=== PATIENT | male | born 1995 | race Caucasian/White ===

== ENCOUNTER 2016-03-19 12:23 | Emergency (ER) | payer BC ==
[~2016-03-19] VITALS: Ht 188 cm; Wt 69.4 kg
[2016-03-19 12:23] VITALS: BP 114/87
[~2016-03-19 12:23] MED LIST: INSU100I4 SQ
[2016-03-19] MEDS ORDERED: ALBUTEROL FS 2.5 MG/0.5 ML VIAL.NEB NEB ONE (13:00)
[2016-03-19] MEDS ORDERED: ALBUTEROL FS 2.5 MG/0.5 ML VIAL.NEB ONE (13:19)
== END 2016-03-19 14:47 | disposition home or self-care (01) ==
LOC: ER 12:26
DX: J20.9 Acute bronchitis, unspecified (principal); E10.9 Type 1 diabetes mellitus without complications
CPT/HCPCS: 71010-TC; A4606; Z7610

== ENCOUNTER 2016-05-06 16:53 | Emergency (ER) | payer BC ==
[~2016-05-06] VITALS: Ht 188 cm; Wt 72.6 kg
[2016-05-06 17:33] VITALS: BP 119/64
== END 2016-05-06 19:04 | disposition home or self-care (01) ==
LOC: ER 17:08
DX: F41.9 Anxiety disorder, unspecified (principal); J20.9 Acute bronchitis, unspecified; G47.00 Insomnia, unspecified; E10.9 Type 1 diabetes mellitus without complications
CPT/HCPCS: 71010; 99283; A4606; Z7610

== ENCOUNTER 2017-11-30 13:32 | Emergency (ER) | payer BC ==
[~2017-11-30] VITALS: Ht 188 cm; Wt 72.6 kg
--- NOTE | 2017-11-30 13:49 | NUR ---
feeling better now; want medical clearance for work and school
--- NOTE | 2017-11-30 13:59 | NUR ---
Patient discharged to home in stable condition. Written and verbal after care instructions given. Patient verbalizes understanding of instruction.
[2017-11-30 14:00] VITALS: BP 124/76
== END 2017-11-30 14:02 | disposition home or self-care (01) ==
LOC: ER 13:39
DX: B34.9 Viral infection, unspecified (principal); E10.9 Type 1 diabetes mellitus without complications; Z79.4 Long term (current) use of insulin
CPT/HCPCS: 99281; A4606; Z7610; Z7502

== ENCOUNTER 2018-08-12 23:34 | Emergency (ER) | payer BC ==
[~2018-08-12] VITALS: Ht 188 cm; Wt 74.8 kg
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
--- NOTE | 2018-08-12 23:53 | NUR ---
XRAY AT BEDSIDE
[2018-08-13] MEDS ORDERED: ONDANSETRON 4 MG TAB.RAPDIS SL ONE
[2018-08-13] MEDS ORDERED: BLOOD SUGAR DIAGNOSTIC 1 EACH STRIP IN ONE
[2018-08-13] MEDS ORDERED: HYDROCODONE/APAP 5/325MG 1 EACH TABLET ONE ×2 (00:36→04:10)
--- NOTE | 2018-08-13 00:43 | NUR ---
ACCUCHECK RESULT RELAYED TO . RESULT 244. MD APPROVED PT TO TAKE HIS MEDICATION PRESCRIBE BY HIS MD. PT REPORTS THAT SHE USUALLY TAKE 2-3 UNITS WITH THIS BS RESULT.
--- NOTE | 2018-08-13 01:03 | NUR ---
CALLING [facility] RE: XRINGRID READ
--- NOTE | 2018-08-13 02:52 | NUR ---
PT REQUESTED TO HAVE BS CHECKED. APPROVED. RESULT 131. AWARE. NNO
--- NOTE | 2018-08-13 02:53 | NUR ---
PT BEING WHEELED TO CT ON WHEELCHAIR
[2018-08-13] MEDS ORDERED: HYDROCODONE/APAP 5/325MG 1 EACH TABLET PO ONE ×2 (04:30)
[2018-08-13 05:07] VITALS: BP 129/75
== END 2018-08-13 04:55 | disposition home or self-care (01) ==
LOC: ER 23:40
DX: S62.142A Displaced fracture of body of hamate [unciform] bone, left wrist, initial encounter for closed fracture (principal); E10.9 Type 1 diabetes mellitus without complications; Z79.84 Long term (current) use of oral hypoglycemic drugs; W22.8XXA Striking against or struck by other objects, initial encounter; Y93.89 Activity, other specified; Y92.39 Other specified sports and athletic area as the place of occurrence of the external cause; Y99.8 Other external cause status
CPT/HCPCS: 73130-TC; 73200-TC; 82962-TC

== ENCOUNTER 2018-10-10 01:19 | Emergency (ER) | payer BC ==
[~2018-10-10] VITALS: Ht 188 cm; Wt 72.6 kg
--- NOTE | 2018-10-10 01:30 | NUR ---
PT BIBSELF C/O FEELING DEPRESSED. DENIES SI BUT STATES "I'VE THOUGHT ABOUT IT BEFORE". DENIES HI OR HALLUCINATIONS. PT AAOX4. RESPIRATIONS EVEN AND UNLABORED. CALM AND COOPERATIVE. ABLE TO AMBULATE WITH STEADY GAIT. SKIN INTACT. VITAL SIGNS STABLE. SUICIDE PRECAUTIONS INITIATED. WILL CONTINUE TO MONITOR.
--- NOTE | 2018-10-10 01:50 | NUR ---
COMBAT CONTROL MANAGER AT BEDSIDE FOR BLOOD DRAW. URINE COLLECTED AND SENT TO LAB.
[2018-10-10 02:18] LABS: APPEARANCE,URINE CLEAR (CLEAR); BILIRUBIN,URINE NEGATIVE (NEGATIVE); BLOOD, URINE NEGATIVE Ery/uL (NEGATIVE); COLOR,URINE YELLOW (YELLOW); KETONES,URINE NEGATIVE (NEGATIVE); LEUKOCYTE ESTERASE ,URINE NEGATIVE (NEGATIVE); NITRITE, URINE NEGATIVE (NEGATIVE); PH,URINE 8.5 (5.0-8.0); PROTEIN,URINE NEGATIVE (NEGATIVE); UGLUCOSE NEGATIVE (NEGATIVE); UROBILINOGEN,URINE 0.2 EU/dL (0.2)
[2018-10-10 02:22] LABS: ALANINE AMINOTRANSFERASE 24 U/L (12-78); ALBUMIN 4.3 g/dL (3.4-5.0); ALCOHOL, BLOOD < 3 mg/dL (0-0); ALKALINE PHOSPHATASE 60 U/L (46-116); ASPARTATE AMINOTRANSFERASE 13 U/L (15-37); BILIRUBIN,DIRECT 0.2 mg/dL (0.0-0.2); BILIRUBIN,TOTAL 0.7 mg/dL (0.2-1.0); CALCIUM, SERUM 9.2 mg/dL (8.5-10.1); CARBON DIOXIDE 26 mmol/L (21-32); CHLORIDE 103 mmol/L (98-107); CREATININE 1.1 mg/dL (0.6-1.3); GLUCOSE 74 mg/dL (74-106); SODIUM SERUM 142 mmol/L (136-145); TOTAL PROTEIN, SERUM 7.9 g/dL (6.4-8.2); UREA NITROGEN, BLOOD 13 mg/dL (7-18)
[2018-10-10 02:25] LABS: BASOPHILS % (AUTO) 0.5 % (0.0-2.0); EOSINOPHILS % (AUTO) 0.8 % (0.0-6.0); HEMATOCRIT 48 % (39-51); HEMOGLOBIN 16.7 g/dL (13.5-17.5); LYMPHOCYTES # (AUTO) 2.3 /CMM (0.8-4.8); LYMPHOCYTES % (AUTO) 22.8 % (20.0-44.0); MEAN CORPUSCULAR HGB CONC 35 g/dl (31.0-36.0); MEAN CORPUSCULAR VOLUME 87 fL (80-96); MONOCYTES # (AUTO) 0.8 /CMM (0.1-1.30); MONOCYTES % (AUTO) 7.7 % (2.0-12.0); NEUTROPHILS # (AUTO) 6.8 /CMM (1.8-8.9); NEUTROPHILS % (AUTO) 68.2 % (43.0-81.0); PLATELET COUNT (AUTO) 299 /CMM (150-450); RED BLOOD CELL COUNT(AUTO) 5.46 MIL/uL (4.5-6.0)
[2018-10-10 02:26] LABS: ACETAMINOPHEN < 2 ug/ml (10-30); SALICYLATE 0.7 mg/dL (2.8-20.0)
--- NOTE | 2018-10-10 03:34 | NUR ---
CALLED [facility] [phone] FOR PSYCH EVAL, VM LEFT, WAITING FOR CALL BACK
--- NOTE | 2018-10-10 03:36 | NUR ---
CALLED HERMAN WASHER OPERATOR [phone] FOR PSYCH EVAL. VM LEFT, WAITING FOR CALL BACK
--- NOTE | 2018-10-10 04:59 | NUR ---
HERMAN BARRAZA AT BEDSIDE FOR EVAL.
--- NOTE | 2018-10-10 05:43 | NUR ---
PT CLEARED FOR PSYCH PER HERMAN MACHINIST 2ND SHIFT.
--- NOTE | 2018-10-10 05:52 | NUR ---
Patient discharged to home in stable condition. Written and verbal after care instructions given. Patient verbalizes understanding of instruction. ambulatory with a steady gait noted. pt aaox4 no acute distress noted, resp even and unlabored. pt denies si or hi at this time. pt mom and girlfriend at bedside to take pt home.
[2018-10-10 05:53] VITALS: BP 127/63
== END 2018-10-10 05:54 | disposition home or self-care (01) ==
LOC: ER 01:25
DX: F32.9 Major depressive disorder, single episode, unspecified (principal); F41.9 Anxiety disorder, unspecified; E10.9 Type 1 diabetes mellitus without complications; F17.200 Nicotine dependence, unspecified, uncomplicated; F12.10 Cannabis abuse, uncomplicated; Y90.0 Blood alcohol level of less than 20 mg/100 ml; Z79.4 Long term (current) use of insulin
CPT/HCPCS: 36415; 80048; 80076; 80305; 80307; 80329; 81001; 85025; 99284; G0480; 81000-TC

== ENCOUNTER 2021-12-26 09:01 | Emergency (ER) | payer BC ==
[~2021-12-26] VITALS: Ht 188 cm; Wt 72.6 kg
[2021-12-26 09:17] VITALS: BP 123/88
--- NOTE | 2021-12-26 09:30 | NUR ---
Fingerstick done as per order- MD notified. No orders at this time
[2021-12-26] MEDS ORDERED: INSULIN REGULAR, HUMAN 100 UNIT/ML 10 ML VIAL ONE (10:45)
[2021-12-26] MEDS: INSULIN REGULAR, HUMAN 100 UNIT/ML 10 ML VIAL SQ ONE (10:48)
[2021-12-26 11:28] LABS: CALCIUM, SERUM 9.1 mg/dL (8.5-10.1); CREATININE 1.2 mg/dL (0.6-1.3); POTASSIUM 4.4 mmol/L (3.5-5.1)
--- NOTE | 2021-12-26 12:04 | NUR ---
BS-124 MD notified Patient discharged to home in stable condition. Written and verbal after care instructions given. Patient verbalizes understanding of instruction.
== END 2021-12-26 12:29 | disposition home or self-care (01) ==
LOC: ER 09:15
DX: Z00.00 Encounter for general adult medical examination without abnormal findings (principal); E10.65 Type 1 diabetes mellitus with hyperglycemia; Z79.4 Long term (current) use of insulin; F41.9 Anxiety disorder, unspecified; F32.A Depression, unspecified; F17.200 Nicotine dependence, unspecified, uncomplicated
CPT/HCPCS: 99283; 96372; 80048; 36415; 82962 ×2; J1815

== ENCOUNTER 2022-07-27 17:41 | Emergency (ER) | payer BC, MEDICAID ==
[~2022-07-27] VITALS: Ht 188 cm; Wt 68.0 kg
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
--- NOTE | 2022-07-27 18:13 | NUR ---
PT PUT ON BEDSIDE MONITOR WITH HIS MOM AT BEDSIDE
--- NOTE | 2022-07-27 18:42 | NUR ---
DIRECTOR WOMEN AT BEDSIDE
[2022-07-27 19:21] VITALS: BP 120/80
== END 2022-07-27 19:22 | disposition home or self-care (01) ==
LOC: ER 17:50
DX: S93.515A Sprain of interphalangeal joint of left lesser toe(s), initial encounter (principal); E10.9 Type 1 diabetes mellitus without complications; F41.9 Anxiety disorder, unspecified; F32.A Depression, unspecified; F17.200 Nicotine dependence, unspecified, uncomplicated; Z79.4 Long term (current) use of insulin; W01.0XXA Fall on same level from slipping, tripping and stumbling without subsequent striking against object, initial encounter; Y93.89 Activity, other specified; Y92.89 Other specified places as the place of occurrence of the external cause; Y99.8 Other external cause status
CPT/HCPCS: 73660-TC